=== PATIENT | female | born 1985 | race Caucasian/White ===

== ENCOUNTER → 2016-06-18 | Outpatient (REF) | payer OTHER | LOC: M LAB REF 12:12 | PROVIDERS: ATTEND Nurse Practitioner Family | DX: N76.0 Acute vaginitis (principal) ==

== ENCOUNTER → 2016-08-17 | Outpatient (REF) | payer OTHER | LOC: M LAB REF 12:48 | PROVIDERS: ATTEND Advanced Practice Midwife | DX: Z11.3 Encounter for screening for infections with a predominantly sexual mode of transmission (principal) ==

== ENCOUNTER → 2016-10-04 | Outpatient (REF) | payer OTHER | LOC: M LAB REF 12:57 | PROVIDERS: ATTEND Advanced Practice Midwife | DX: R35.0 Frequency of micturition (principal) ==

== ENCOUNTER 2017-06-22 00:08 | Inpatient (IN) | payer OTHER ==
[2017-06-22 00:49] LABS: HEMATOCRIT 36.7 % (36.0-47.0); HEMOGLOBIN 12.6 g/dl (12.0-16.0); MEAN CORPUSCULAR HEMOGLOBIN 30.4 pg (27.0-33.0); MEAN CORPUSCULAR HGB CONC 34.3 g/dl (32.0-36.5); MEAN CORPUSCULAR VOLUME 88.6 fl (80.0-96.0); PLATELET COUNT, AUTOMATED 218 10^3/uL (150-450); RED BLOOD COUNT 4.14 10^6/uL (4.00-5.40); WHITE BLOOD COUNT 5.7 10^3/uL (4.0-10.0)
[2017-06-22 00:58] LABS: AMPHETAMINES LEVEL URINE NEGATIVE (NEGATIVE); BARBITURATES URINE NEGATIVE (NEGATIVE); BENZODIAZEPINES URINE NEGATIVE (NEGATIVE); CANNABINOIDS URINE NEGATIVE (NEGATIVE); COCAINE METABOLITE URINE NEGATIVE (NEGATIVE); METHADONE URINE NEGATIVE (NEGATIVE); OPIATES URINE NEGATIVE (NEGATIVE); PHENCYCLIDINE URINE NEGATIVE (NEGATIVE)
[2017-06-22 01:11] LABS: CONTROL LINE HCG INT CTR LINE PRESENT; HCG, SERUM QUALITATIVE NEGATIVE (NEGATIVE)
[2017-06-22 01:37] LABS: ACETAMINOPHEN LEVEL < 2.0 UG/ML (10.0-30.0); ALBUMIN 4.1 GM/DL (3.2-5.2); ALBUMIN/GLOBULIN RATIO 1.46 (1.00-1.93); ALKALINE PHOSPHATASE 33 U/L (45-117); ALT/SGPT 28 U/L (12-78); ANION GAP 8 MEQ/L (8-16); AST/SGOT 23 U/L (7-37); BILIRUBIN,DIRECT 0.2 MG/DL (0.0-0.2); BILIRUBIN,TOTAL 0.7 MG/DL (0.2-1.0); BLOOD UREA NITROGEN 5 MG/DL (7-18); CALCIUM LEVEL 8.8 MG/DL (8.5-10.1); CARBON DIOXIDE LEVEL 27 MEQ/L (21-32); CHLORIDE LEVEL 106 MEQ/L (98-107); CREATININE FOR GFR 0.68 MG/DL (0.55-1.30); ETHYL ALCOHOL (ETHANOL) 0.004 % (0.000-0.010); GLOMERULAR FILTRATION RATE > 60.0 (>60); GLUCOSE, FASTING 87 MG/DL (70-100); POTASSIUM SERUM 3.5 MEQ/L (3.5-5.1); SALICYLATE LEVEL < 1.7 MG/DL (5.0-30.0); SODIUM LEVEL 141 MEQ/L (136-145); TOTAL PROTEIN 6.9 GM/DL (6.4-8.2)
[2017-06-22] MEDS ORDERED: MORPHINE 2 MG/ML 1ML SYRINGE (J2270) IV (06:15)
[2017-06-22] MEDS ORDERED: METOCLOPRAMIDE INJ 10MG/2ML VIAL (J2765) IV (06:15)
[2017-06-22] MEDS ORDERED: ACETAMINOPHEN TAB 650MG DOSE (2X325MG) PO (09:30)
[2017-06-22] MEDS ORDERED: traZODone 50 MG TAB PO (09:30)
[2017-06-22] MEDS ORDERED: MAALOX 30 ML SUSP *UDC PO (09:30)
[2017-06-22] MEDS ORDERED: LORazepam 2 MG TAB PO (12:15)
[2017-06-23] MEDS ORDERED: hydrOXYzine 50 MG TAB PO (12:30)
[2017-06-23] MEDS: SERTRALINE HCL 25 MG TABLET PO (16:00)
[2017-06-23] MEDS: QUEtiapine FUMARATE 12.5 MG HALF-TAB PO (16:00)
[2017-06-23] MEDS: QUEtiapine FUMARATE 50 MG TAB PO (21:00)
[2017-06-24] MEDS: QUEtiapine FUMARATE 12.5 MG HALF-TAB PO (09:00)
[2017-06-24] MEDS: SERTRALINE HCL 25 MG TABLET PO (09:49)
[2017-06-24] MEDS: MOM 30ML SUSPENSION UDC PO (15:50)
[2017-06-24] MEDS: QUEtiapine FUMARATE 50 MG TAB PO (20:26)
[2017-06-25] MEDS: SERTRALINE HCL 25 MG TABLET PO (08:56)
[2017-06-25] MEDS: QUEtiapine FUMARATE 12.5 MG HALF-TAB PO ×2 (08:56→09:53)
[2017-06-25] MEDS: QUEtiapine FUMARATE 25 MG TAB PO (20:15)
[2017-06-25] MEDS: MOM 30ML SUSPENSION UDC PO (20:17)
[2017-06-26] MEDS: SERTRALINE HCL 25 MG TABLET PO (08:28)
[2017-06-26] MEDS: QUEtiapine FUMARATE 12.5 MG HALF-TAB PO (08:28)
[2017-06-26] MEDS: QUEtiapine FUMARATE 25 MG TAB PO (20:19)
[2017-06-27] MEDS: QUEtiapine FUMARATE 12.5 MG HALF-TAB PO (08:13)
[2017-06-27] MEDS: SERTRALINE HCL 25 MG TABLET PO (08:13)
== END 2017-06-27 12:50 | disposition home or self-care (01) | DRG 756 ==
LOC: M PSY 06-23 17:06 → M ED 00:08 → M ED INP 09:25 → M PSY 10:55
DX: F41.1 Generalized anxiety disorder (principal); F60.3 Borderline personality disorder; F15.90 Other stimulant use, unspecified, uncomplicated; F13.90 Sedative, hypnotic, or anxiolytic use, unspecified, uncomplicated; Z79.899 Other long term (current) drug therapy

== ENCOUNTER → 2017-08-27 | Outpatient (REF) | payer OTHER ==
[2017-08-27 22:14] LABS: CHLAMYDIA DNA AMPLIFICATION NEGATIVE (NEGATIVE); GC DNA AMPLIFICATION NEGATIVE (NEGATIVE)
== END ==
LOC: M LAB REF 16:42
DX: N76.0 Acute vaginitis (principal)

== ENCOUNTER → 2018-02-14 | Outpatient (REF) | payer OTHER ==
[2018-02-14 11:30] LABS: INFLUENZA A AMPLIFICATION NEGATIVE (NEGATIVE); INFLUENZA B AMPLIFICATION NEGATIVE (NEGATIVE)
== END ==
LOC: M LAB REF 10:50
DX: J11.1 Influenza due to unidentified influenza virus with other respiratory manifestations (principal)

== ENCOUNTER → 2018-03-27 | Outpatient (REF) | payer OTHER | LOC: M LAB REF 13:36 | DX: N92.6 Irregular menstruation, unspecified (principal); R10.2 Pelvic and perineal pain | CPT/HCPCS: 87086 ==

== ENCOUNTER 2018-07-04 08:32 | Emergency (ER) | payer OTHER ==
[~2018-07-04] VITALS: Ht 157.5 cm; Wt 56.8 kg
[~2018-07-04 08:32] MED LIST: ADDE30CA3 PO; AMBI10TA PO; CLON1TAB8 PO; SERO1TAB3 PO; TRAZ-160 PO; VIST50CA PO; ZOLO25TA PO
[2018-07-04] MEDS ORDERED: ADDE30CA3 PO (08:38)
[2018-07-04] MEDS ORDERED: BUPR1TAB52 PO (08:38)
[2018-07-04] MEDS ORDERED: KETOROLAC 30 MG/ML VIAL (J1885) IV ONE (09:00)
[2018-07-04] MEDS ORDERED: METOCLOPRAMIDE INJ 10MG/2ML VIAL (J2765) IV ONE (09:00)
[2018-07-04] MEDS ORDERED: NS 1,000 ML IV ONE (09:00)
[2018-07-04 09:12] LABS: BASO % 0.5 % (0.0-1.0); EOS % 0.7 % (0.0-3.0); HEMATOCRIT 40.5 % (36.0-47.0); HEMOGLOBIN 14.1 g/dl (12.0-15.5); LYMPH # 0.7 10^3/uL (1.5-4.5); MEAN CORPUSCULAR HEMOGLOBIN 30.5 pg (27.0-33.0); MEAN CORPUSCULAR HGB CONC 34.8 g/dl (32.0-36.5); MEAN CORPUSCULAR VOLUME 87.7 fl (80.0-96.0); MONO # 0.3 10^3/uL (0.0-0.8); MONO % 6.2 % (0.0-5.0); NEUTROPHILS # 3.4 10^3/uL (1.8-7.7); NEUTROPHILS % 76.4 % (36.0-66.0); PLATELET COUNT, AUTOMATED 181 10^3/uL (150-450); RED BLOOD COUNT 4.62 10^6/uL (4.00-5.40); WHITE BLOOD COUNT 4.4 10^3/uL (4.0-10.0)
[2018-07-04 09:41] LABS: ALBUMIN 3.5 GM/DL (3.2-5.2); ALT/SGPT 18 U/L (12-78); BILIRUBIN,DIRECT 0.1 MG/DL (0.0-0.2); BILIRUBIN,TOTAL 0.4 MG/DL (0.2-1.0); BLOOD UREA NITROGEN 8 MG/DL (7-18); CALCIUM LEVEL 8.1 MG/DL (8.5-10.1); CARBON DIOXIDE LEVEL 31 MEQ/L (21-32); CHLORIDE LEVEL 104 MEQ/L (98-107); CREATININE FOR GFR 0.68 MG/DL (0.55-1.30); GLOMERULAR FILTRATION RATE > 60.0 (>60); GLUCOSE, FASTING 95 MG/DL (70-100); LIPASE 111 U/L (73-393); POTASSIUM SERUM 3.8 MEQ/L (3.5-5.1); SODIUM LEVEL 138 MEQ/L (136-145); TOTAL PROTEIN 6.5 GM/DL (6.4-8.2)
[2018-07-04] MEDS ORDERED: IBUP-1022 PO (10:03)
[2018-07-04] MEDS ORDERED: ONDA4TAB6 PO (10:03)
[2018-07-04] MEDS ORDERED: PEPC1TAB5 PO (10:04)
[2018-07-04 10:14] VITALS: BP 102/58
== END 2018-07-04 10:36 | disposition home or self-care (01) ==
LOC: M ED 08:32
DX: G43.909 Migraine, unspecified, not intractable, without status migrainosus (principal); K29.70 Gastritis, unspecified, without bleeding; F41.9 Anxiety disorder, unspecified; Z79.899 Other long term (current) drug therapy
CPT/HCPCS: 80048; 80076; 83690; 85025; 96374; 96375; 99284; J1885; J2765

== ENCOUNTER → 2018-09-01 | Outpatient (REF) | payer OTHER ==
[~2018-09-01] MED LIST changes: +BUPR1TAB52 PO; +IBUP-1022 PO; +ONDA4TAB6 PO; +PEPC1TAB5 PO
== END ==
LOC: M LAB REF 18:02
PROVIDERS: ATTEND Nurse Practitioner Family
DX: R53.83 Other fatigue (principal)

== ENCOUNTER → 2019-01-22 | Outpatient (REF) | payer OTHER ==
[~2019-01-22] MED LIST changes: -TRAZ-160 PO; +TRAZ-252 PO
== END ==
LOC: M LAB REF 16:37
PROVIDERS: ATTEND Nurse Practitioner Family
DX: L30.9 Dermatitis, unspecified (principal)

== ENCOUNTER 2019-03-05 17:03 | Emergency (ER) | payer OTHER ==
[~2019-03-05] VITALS: Ht 157.5 cm; Wt 58.3 kg
[2019-03-05] MEDS ORDERED: ZOLP10TA2 (17:09)
[2019-03-05] MEDS ORDERED: IPRATROPIUM 0.5MG/ALBUTEROL 2.5MG INH SOL UD 3ML (DUONEB)(J7620) NEB ONE (18:00)
[2019-03-05] MEDS ORDERED: PRED20TA PO (18:55)
[2019-03-05] MEDS ORDERED: predniSONE 20 MG TAB PO ONE (19:00)
[2019-03-05 19:07] VITALS: BP 100/62
--- NOTE | 2019-03-05 19:41 | REP ---
Two-view chest: 03/05/2019. Indication: Dyspnea. Comparison: 08/15/2015. Findings: The lungs are clear. There is no pleural effusion or pneumothorax. The cardiac silhouette is unremarkable. Impression: No acute cardiopulmonary process. Electronically Signed by Jones Roman DO 03/05/2019 07:33 P
--- NOTE | 2019-03-06 21:23 | ECGEPIP ---
[facility] - ED Test Date: 2019-03-05 Pat Name: BOAZ SAHU Department: Room: - Gender: Female [employer]: : 1985 Requested By: GERMÁN Felix Order Number: [id number] Reading MD: Radha Headley Measurements Intervals [place] Rate: 99 P: 71 UT: 163 QRS: 90 QRSD: 81 T: 59 QT: 326 QTc: 418 Interpretive Statements SINUS RHYTHM POSSIBLE LEFT ATRIAL ENLARGEMENT Electronically Signed on 03-06-2019 21:23:21 EDT by Radha Headley
== END 2019-03-05 19:09 | disposition home or self-care (01) ==
LOC: M ED 17:03
DX: J20.9 Acute bronchitis, unspecified (principal); R06.02 Shortness of breath; R00.0 Tachycardia, unspecified; F40.10 Social phobia, unspecified; Z79.899 Other long term (current) drug therapy

== ENCOUNTER → 2023-09-10 | Outpatient (REF) | payer OTHER ==
[~2023-09-10] MED LIST changes: +PRED20TA PO; +ZOLP10TA2
== END ==
LOC: M LAB REF 14:09
PROVIDERS: ATTEND Advanced Practice Midwife
DX: R30.0 Dysuria (principal)

== ENCOUNTER → 2024-11-24 | Outpatient (CLI) | payer OTHER ==
[~2024-11-24] MED LIST changes: -AMBI10TA PO; +BUPR-670 PO; -BUPR1TAB52 PO; +ONDA-282 PO; -ONDA4TAB6 PO; +ZOLP-533 PO
== END ==
LOC: M RAD 13:03
PROVIDERS: ATTEND Physician Assistant
DX: I83.813 Varicose veins of bilateral lower extremities with pain (principal)

== ENCOUNTER → 2025-03-30 | Outpatient (REF) | payer OTHER ==
[~2025-03-30] MED LIST changes: -IBUP-1022 PO; +IBUP600T42 PO; +ZOLP10TA11; -ZOLP10TA2
[2025-03-30 15:34] LABS: AMORPHOUS SEDIMENT SMALL (NEGATIVE); APPEARANCE, URINE TURBID (CLEAR); BACTERIA, URINE AUTO 2+ (NEGATIVE); BILIRUBIN, URINE AUTO NEGATIVE (NEGATIVE); BLOOD, URINE BLOOD 1+ (NEGATIVE); CALCIUM OXALATE CRYSTALS SMALL; GLUCOSE, URINE (UA) AUTO NEGATIVE (NEGATIVE); KETONE, URINE AUTO NEGATIVE (NEGATIVE); LEUKOCYTE ESTERASE, URINE AUTO 1+ (NEGATIVE); MUCUS, URINE LARGE (NEGATIVE); NITRITE, URINE AUTO NEGATIVE (NEGATIVE); PROTEIN, URINE AUTO NEGATIVE (NEGATIVE); RBC, URINE AUTO 1 /HPF (0-3); SPECIFIC GRAVITY URINE AUTO 1.024 (1.002-1.035); SQUAMOUS EPITHELIAL CELL UR AU 3 /HPF (0-6); UROBILINOGEN, URINE AUTO 0.2 mg/dL (0.0-2.0); WBC, URINE AUTO 0 /HPF (0-3)
[2025-03-30 15:38] LABS: BASO # 0.0 10^3/uL (0.0-0.2); BASO % 0.5 % (0.0-1.0); EOS # 0.1 10^3/uL (0.0-0.5); EOS % 1.3 % (0.0-3.0); LYMPH # 2.1 10^3/uL (1.5-5.0); LYMPH % 26.7 % (24.0-44.0); MONO # 0.5 10^3/uL (0.0-0.8); MONO % 6.0 % (2.0-8.0); NEUTROPHILS # 5.1 10^3/uL (1.5-8.5); NEUTROPHILS % 65.2 % (36.0-66.0); PLATELET COUNT, AUTOMATED 305 10^3/uL (150-450)
[2025-03-30 15:53] LABS: TOTAL PROTEIN,RANDOM URINE 11.5 MG/DL (0.0-14.0)
[2025-03-30 16:01] LABS: ALT/SGPT 14 U/L (7.0-40); AST/SGOT 17 U/L (<34); C REACTIVE PROTEIN QUANTITATIV < 0.50 MG/DL (<1.0); CALCIUM LEVEL 9.2 MG/DL (8.5-10.1); CARBON DIOXIDE LEVEL 29 MMOL/L (20-31); CHLORIDE LEVEL 102 MMOL/L (98-107); CREATININE FOR GFR 0.69 MG/DL (0.55-1.30); GLOMERULAR FILTRATION RATE > 90.0 (>58); POTASSIUM SERUM 3.6 MMOL/L (3.5-5.1); SODIUM LEVEL 141 MMOL/L (136-145)
[2025-03-30 16:02] LABS: TOTAL 25(OH) VITAMIN D 26.9 NG/ML (20.0-100.0)
[2025-03-30 16:03] LABS: COMPLEMENT C4 24.2 MG/DL (12-36)
[2025-04-02 16:20] LABS: EBV AB TO NUCLEAR ANTIGEN 242.00 U/mL (<18.00); EBV VIRAL CAPSID AG IGG 59.80 U/mL (<18.00); EBV VIRAL CAPSID AG IGM < 36.00 U/mL (<36.00)
== END ==
LOC: M SFHCRHEU 10:38
PROVIDERS: ATTEND Internal Medicine
DX: R76.89 Other specified abnormal immunological findings in serum (principal); E55.9 Vitamin D deficiency, unspecified; R53.83 Other fatigue

== ENCOUNTER 2025-03-31 10:03 | Outpatient (RCR) | payer OTHER | END 2025-04-11 | LOC: M PT 10:03 | PROVIDERS: ATTEND Physician Assistant | DX: I83.813 Varicose veins of bilateral lower extremities with pain (principal); R60.9 Edema, unspecified ==

== ENCOUNTER 2025-04-29 10:34 | Outpatient (RCR) | payer OTHER | END 2025-05-12 | LOC: M PT 10:34 | PROVIDERS: ATTEND Physician Assistant | DX: I83.813 Varicose veins of bilateral lower extremities with pain (principal) ==